=== PATIENT | female | born 1975 | race Caucasian/White ===

== ENCOUNTER → 2019-09-14 | Outpatient (REF) | payer BC ==
[~2019-09-14] MED LIST: IBUP600T26 PO; MAPA500T17 PO
== END ==
LOC: M SFHCWAGY 17:14
PROVIDERS: ATTEND Nurse Practitioner Family
DX: Z12.4 Encounter for screening for malignant neoplasm of cervix (principal)
CPT/HCPCS: 87624; G0123

== ENCOUNTER → 2020-02-09 | Outpatient (CLI) | payer BC ==
--- NOTE | 2020-02-09 08:40 | REPMRS ---
Patient History The patient states she had a clinical breast exam in 2019. Family history of unknown cancer in maternal aunt, breast cancer in paternal grandmother, unknown cancer in paternal grandfather. Digital Woman Screen Mammo: February 09, 2020 - Exam #: [id number] Bilateral CC and MLO view(s) were taken. Technologist: Gabrielle Rivera, Technologist No prior studies available for comparison. FINDINGS: The breast tissue is heterogeneously dense. This may lower the sensitivity of mammography. The [place] volumetric breast density category is: C. There are three dominant nodular opacities in the right breast, one in the superior medial, and to in the superolateral quadrant. These are well circumscribed and may be cysts. They measure 15, 16, and 11 mm. They merit further evaluation. No other abnormalities noted mammographically in the right breast. There is an asymmetric nodular opacity projecting at approximately 12 o'clock position in the left breast measuring 4 mm in diameter which merits further evaluation as well. There is no other evidence of dominant mass, architectural distortion, or grouped microcalcification typical of malignancy. 3-D tomosynthesis shows no additional findings. Assessment: BI-RADS/ACR category 0 mammogram, Incomplete: Need additional imaging evaluation and/or prior mammograms for comparison. Recommendation Ultrasound and special view mammogram of both breasts. This patient's Lifetime Breast Cancer RIsk is estimated at 15.3 %. This mammogram was interpreted with the aid of an FDA-approved computer-aided dectection system. Electronically Signed By: Rey Enriquez MD 02/09/20 [id number]
== END ==
LOC: M WHC 07:46
PROVIDERS: ATTEND Nurse Practitioner Family
DX: R92.2 Inconclusive mammogram (principal)

== ENCOUNTER → 2020-03-09 | Outpatient (CLI) | payer BC ==
--- NOTE | 2020-05-11 06:49 | REP ---
DIGITAL DIAGNOSTIC BILATERAL MAMMOGRAPHY WITH CAD, 3D TOMOGRAPHY AND FOCUSED BILATERAL BREAST SONOGRAPHY HISTORY: Screening mammography dated 02/09/2020 was BI-RADS category 0 because of multiple bilateral well-circumscribed nodular opacities. Diagnostic imaging was recommended. MAMMOGRAPHIC FINDINGS: 9 to 5 focal spot compressions, CC, MLO, and true ML views were obtained with non-magged 3D tomography in the mediolateral projection of both breasts. Multiple well-circumscribed medium attenuation nodularity densities were seen in the right breast superiorly consistent with cysts. Densities were noted both medially and laterally. No architectural distortion or microcalcification is seen. The largest of these densities measures 16 mm. On the left, there is a persistent well-circumscribed nodular opacity in the 12 o'clock position measuring 6 mm. No other mammographic abnormality. Heterogeneously dense breast parenchyma is again seen. SONOGRAPHIC FINDINGS: Focused right breast scanning is performed through the superior half of the breasts. Multiple simple cysts are observed. The largest is at 12 o'clock, 1 cm from the nipple, measuring 2.6 x 1.3 x 2.1 cm. There are multiple cysts in the superior half of the right breast. No suspicious abnormalities are noted on the right. On the left, at 12 o'clock, heterogeneous fibroglandular echotexture is seen. There is a 7 x 7 x 6 mm cyst at 12 o'clock in the left breast. Retroareolar normal-appearing fibroglandular tissue is seen. No suspicious abnormalities noted on the left. FINDINGS: BI-RADS category 2: Benign bilateral breast imaging. Bilateral breast cysts. Repeat screening mammography recommended in one year. BIRADS 2: BI-RADS/ACR category 2 mammogram. Benign findings. This examination was interpreted with the aid of an FDA-approved computer-aided detection system. Patient letter is M1 dense. MTDD
== END ==
LOC: M WHC 07:47
PROVIDERS: ATTEND Nurse Practitioner Family
DX: R92.2 Inconclusive mammogram (principal)

== ENCOUNTER → 2021-06-21 | Outpatient (CLI) | payer BC | LOC: M WHC 10:44 | PROVIDERS: ATTEND Nurse Practitioner Women's Health | DX: Z12.31 Encounter for screening mammogram for malignant neoplasm of breast (principal) ==

== ENCOUNTER → 2021-07-11 | Outpatient (CLI) | payer BC | LOC: M WHC 10:43 | PROVIDERS: ATTEND Nurse Practitioner Women's Health | DX: N60.01 Solitary cyst of right breast (principal); N60.02 Solitary cyst of left breast; Z12.31 Encounter for screening mammogram for malignant neoplasm of breast | CPT/HCPCS: 76642; 77066; G0279 ==

== ENCOUNTER → 2023-01-24 | Outpatient (CLI) | payer BC | LOC: M WHC 13:19 | PROVIDERS: ATTEND Nurse Practitioner Women's Health | DX: Z12.31 Encounter for screening mammogram for malignant neoplasm of breast (principal) ==

== ENCOUNTER → 2025-06-29 | Outpatient (CLI) | payer BC | LOC: M WHC 07:56 | PROVIDERS: ATTEND Nurse Practitioner Family | DX: Z12.31 Encounter for screening mammogram for malignant neoplasm of breast (principal); R92.333 Mammographic heterogeneous density, bilateral breasts ==

== ENCOUNTER → 2025-06-29 | Outpatient (REF) | payer BC ==
[2025-07-01 12:37] LABS: HPV APTIMA Not Detected (Not Detected)
== END ==
LOC: M SFHCWAGY 10:42
PROVIDERS: ATTEND Nurse Practitioner Family
DX: Z12.4 Encounter for screening for malignant neoplasm of cervix (principal)
CPT/HCPCS: 87624; G0123